=== PATIENT | female | born 1990 | race African-American/Black ===

== ENCOUNTER 2019-03-23 08:30 | Emergency (ER) | payer MEDICAID, OTHER ==
[~2019-03-23] VITALS: Ht 167.6 cm; Wt 70.0 kg
[2019-03-23 08:36] VITALS: BP 125/78
[2019-03-23] MEDS ORDERED: ACETAMINOPHEN 325MG TABLET PO ONE (09:15)
== END 2019-03-23 11:10 | disposition home or self-care (01) ==
LOC: ER 08:30
DX: S02.85XA Fracture of orbit, unspecified, initial encounter for closed fracture (principal); Y08.89XA Assault by other specified means, initial encounter; Y93.89 Activity, other specified; Y92.89 Other specified places as the place of occurrence of the external cause; Y99.8 Other external cause status; J45.909 Unspecified asthma, uncomplicated
CPT/HCPCS: 70486; 81025; 99284